=== PATIENT | male | born 1990 | race Caucasian/White ===

== ENCOUNTER 2021-02-16 17:47 | Emergency (ER) | payer BC, SELFPAY ==
--- NOTE | ~2021-02-16 | CT_ITS ---
EXAMINATION: CT abdomen pelvis w con INDICATION: Right flank pain TECHNIQUE: Computed tomographic images of the abdomen and pelvis were obtained after the administrati on of 100 cc of Omnipaque 350 intravenous contrast. The dose-length product (DLP) was 319.85 mGy-cm. Automated exposure control and iterative reconstruction technique were employed. COMPARISON: None available FINDINGS: Minimal dependent atelectasis is present in the lung bases. The heart size is normal. Punct ate calcifications in an otherwise normal spleen likely represent healed granulomatous disease. The l iver, pancreas, gallbladder, and adrenal glands are normal. The kidneys are unremarkable. The appendi x is normal. There is mild lumbar spondylosis. IMPRESSION: 1. No CT correlate for the patient's symptoms. Reviewed, dictated and finalized at location A.
--- NOTE | ~2021-02-16 | XR_ITS ---
EXAMINATION: XR chest 1V portable INDICATION: Right upper quadrant abdominal pain TECHNIQUE: Portable AP chest at 1927 hours COMPARISON: None available FINDINGS: The lungs are free of acute opacities. There is no pleural effusion or pneumothorax. The ca rdiomediastinal silhouette is normal. The visualized bones and soft tissues are unremarkable. IMPRESSION: 1. No acute cardiopulmonary abnormality. Reviewed, dictated and finalized at location A.
[2021-02-16 17:48] VITALS: BP 150/67; PULSE 102; RESP 16; TEMP 37; O2SAT 100
[2021-02-16 18:00] LABS: Basophils Percent Auto 0.1 % (0.2-1.2); Eosinophils Percent Auto 0.1 % (0-4.4); Hematocrit 43.9 % (42.0-52.0); Hemoglobin 15.1 g/dL (14.0-18.0); Immature Granulocyte Absolute 0.04 K/mm3 (0.00-0.031); Immature Granulocyte Percent A 0.5 % (0-0.5); Lymphocytes Absolute Auto 0.57 K/mm3 (0.9-3.2); Lymphocytes Percent Auto 6.7 % (18.3-44.2); Mean Corpuscular HGB Conc 34.4 g/dl (32-36); Mean Corpuscular Hemoglobin 29.4 pg (26-34); Mean Corpuscular Volume 85.6 fl (80-100); Mean Platelet Volume 11.2 fl (7.4-10.4); Monocytes Absolute Auto 0.5 K/mm3 (0.1-0.6); Monocytes Percent Auto 6.3 % (2.6-8.5); Neutrophils Absolute Auto 7.4 K/mm3 (1.3-6.7); Neutrophils Percent Auto 86.3 % (45.5-73.1); Platelet Count Result 162 k/mm3 (150-375); Red Blood Count 5.13 M/mm3 (4.6-6.20); Red Cell Distribution Width 12.6 % (11.5-14.5); White Blood Count 8.6 K/mm3 (4.5-10.0)
[2021-02-16 18:12] LABS: Anion Gap 8 mmol/L (8-16); Blood Urea Nitrogen 12 mg/dL (9-20); Calcium 9.1 mg/dL (8.4-10.2); Carbon Dioxide 27 mmol/L (22-30); Chloride 104 mmol/L (98-107); Estimated CRCL calculation 86 ml/min; Estimated Glomerular Filt Rate > 60; Glucose 107 mg/dL (75-110); Potassium 3.8 mmol/L (3.4-5.0); Sodium 139 mmol/L (137-145)
[2021-02-16 18:21] LABS: Add Urine Microscopic? YES; Appearance Urine Cloudy (Clear); Bacteria Urine Trace /hpf; Bilirubin Urine Negative (Negative); Blood Urine Negative (Negative); Color Urine Yellow (Yellow); Glucose Urine UA Negative (Negative); Ketones Urine Negative (Negative); Leukocyte Esterase Ur Trace LEU/UL (Negative); Mucus Urine Few /lpf; Nitrate Urine Negative (Negative); Protein Urine 1+ mg/dL (Negative); RBC Urine 0-2 /hpf (0-2); Specific Grav Ur 1.028 (1.001-1.035); Urobilinogen Urine Negative mg/dL (<2.0)
--- NOTE | 2021-02-16 18:21 | ED.GENADULT ---
HPI - General Adult General Chief complaint: Abdominal Pain Stated complaint: Flank Pain Time Seen by Provider: 02/16/21 18:01 Source: patient and family Mode of arrival: ambulatory Limitations: no limitations History of Present Illness HPI narrative: Patient is a 30-year-old male who presents with right flank pain that began yesterday as an aching pain in the CVA region and right upper quadrant patient notes aching pain that is worse with movement patient denies any fever chills nausea vomiting currently. Patient notes that he has had some nausea with the pain which has worsened off and on. Patient notes that the pain this morning extended into his scrotum. Patient denies injury trauma similar occurrence in the past. On arrival patient does not appear uncomfortable patient has taken Tylenol and ibuprofen throughout the day. Related Data Allergies Allergy/AdvReac Type Severity Reaction Status Date / Time No Known Allergies Allergy Verified 02/16/21 18:19 Review of Systems Review of Systems: All systems reviewed & are unremarkable except as noted in HPI and below PMFSH Social History Social History (Updated 02/16/21 @ 18:23 by Kervin Cornell PA-C) Smoking status: Never smoker Exam Narrative: Exam Narrative: GENERAL: Well-appearing, well-nourished, and in no acute distress. HEAD: Normocephalic, atraumatic. EYES: PERRLA and EOMI. ENT: Nares clear, no rhinorrhea or epistaxis. Mucous membranes moist. CHEST: Clear to auscultation. No respiratory distress. No wheezes rales or rhonchi HEART: Regular rate and rhythm. No murmur heard. Normal peripheral pulses. ABDOMEN: Soft, tenderness of the right side of the abdomen, nondistended EXTREMITIES: Normal range of motion. No edema. SKIN: Warm, dry, no rash. NEURO: No focal deficits. Alert and oriented x3. PSYCH: Normal mood and affect. Course Course Emergency Course: Patient presented with GI upset flank pain no kidney stone was detected urine will be cultured patient will referred back to primary care and given a GI consult noting that he had one other similar bout a few weeks ago that resolved patient has been advised to adhere to a low-fat diet given reasons to return is felt appropriate for outpatient reevaluation. Vital Signs Vital signs: Vital Signs Temperature 98.6 F 02/16/21 17:48 Pulse Rate 102 H 02/16/21 17:48 Respiratory Rate 16 02/16/21 17:48 Blood Pressure 150/67 H 02/16/21 17:48 Pulse Oximetry 100 02/16/21 17:48 Temperature 98.6 F 02/16/21 17:48 Pulse Rate 86 02/16/21 19:21 Respiratory Rate 13 02/16/21 19:21 Blood Pressure 123/76 02/16/21 19:21 Pulse Oximetry 100 02/16/21 19:21 Medical Decision Making MDM Narrative Medical decision making narrative: Patient presented with GI upset resting comfortably in the room at this time in no distress feel that the patient can be discharged safely patient agreeing with this plan gastritis, , kidney stone , peptic duodenal ulcer, pneumonia, urinary tract infection as possible etiologies Vital Signs Vital Signs: Vital Signs Temperature 98.6 F 02/16/21 17:48 Pulse Rate 102 H 02/16/21 17:48 Respiratory Rate 16 02/16/21 17:48 Blood Pressure 150/67 H 02/16/21 17:48 Pulse Oximetry 100 02/16/21 17:48 Temperature 98.6 F 02/16/21 17:48 Pulse Rate 86 02/16/21 19:21 Respiratory Rate 13 02/16/21 19:21 Blood Pressure 123/76 02/16/21 19:21 Pulse Oximetry 100 02/16/21 19:21 Lab Data Result diagrams: 02/16/21 17:54 02/16/21 17:53 Labs: Lab Results 02/16/21 02/16/21 02/16/21 Range/Units 17:53 17:53 17:54 WBC 8.6 (4.5-10.0) K/mm3 RBC 5.13 (4.6-6.20) M/mm3 Hgb 15.1 (14.0-18.0) g/dL Hct 43.9 (42.0-52.0) % MCV 85.6 (80-100) fl MCH 29.4 (26-34) pg MCHC 34.4 (32-36) g/dl RDW 12.6 (11.5-14.5) % Plt Count 162 (150-375) k/mm3 MPV 11.2 H (7.4-10.4) fl Immature Gran % (Au
[2021-02-16] MEDS: SODIUM CHLORIDE 0.9% IV 1,000 ML 999 ML IV CONT (18:24)
[2021-02-16] MEDS: MORPHINE SULFATE (*CRX) 4 MG/ML INJ IV PUSH (18:25)
[2021-02-16] MEDS: PANTOPRAZOLE SODIUM IV 40 MG VIAL IV PUSH (18:26)
[2021-02-16] MEDS: ONDANSETRON INJ 4 MG/2 ML VIAL IV PUSH (18:26)
[2021-02-16 19:20] VITALS: PULSE 84; RESP 20
[2021-02-16 19:21] VITALS: BP 123/76; PULSE 86; RESP 13; O2SAT 100
[2021-02-16 19:41] LABS: Alanine Aminotransferase 21 U/L (4-50); Albumin Level 4.7 g/dL (3.5-5.1); Alkaline Phosphatase 73 U/L (38-126); Aspartate Amino Transferase 30 U/L (17-59); Bilirubin,Total 0.7 mg/dL (0.2-1.3); Lipase 59 U/L (23-300)
[2021-02-16] MEDS: KETOROLAC 30 MG/ML VIAL (*BKC) IV PUSH (20:27)
[2021-02-16 20:37] VITALS: BP 113/85; PULSE 60; RESP 16; TEMP 36.6; O2SAT 100
== END 2021-02-16 20:39 | disposition home or self-care (01) ==
PROVIDERS: Emergency Medicine Emergency Medical Services; Emergency Provider Emergency Medicine; PCP Internal Medicine
DX: R10.9 Unspecified abdominal pain (principal)
CPT/HCPCS: 36415; 71045; 74177; 80048; 80076; 81001; 83690; 85025; 96361; 96374; 96375; 99284; C9113; J1885; J2270; J2405; J7030; Q9967